=== PATIENT | female | born 1960 | race African-American/Black ===

== ENCOUNTER 2018-06-23 10:47 | Emergency (ER) | payer MEDICARE, OTHER, MEDICAID ==
[2018-06-23] MEDS: DIAZEPAM 5 MG TAB PO (11:30)
[2018-06-23] MEDS: KETOROLAC 60 MG INJ IM (11:33)
== END 2018-06-23 13:45 | disposition home or self-care (01) ==
LOC: FTE 10:47
DX: M25.512 Pain in left shoulder (principal); M54.2 Cervicalgia; I10 Essential (primary) hypertension; F17.210 Nicotine dependence, cigarettes, uncomplicated
CPT/HCPCS: 72040; 73030; 96372; 99284-25